=== PATIENT | female | born 1985 | race Caucasian/White ===

== ENCOUNTER 2024-01-12 22:12 | Emergency (ER) | payer SELFPAY ==
[~2024-01-12] VITALS: Ht 152.4 cm; Wt 56.7 kg
[2024-01-12 22:32] VITALS: TEMP 99.2
[2024-01-12] MEDS ORDERED: TYLENOL325 MG PO (22:43)
[2024-01-12] MEDS ORDERED: IBUPROFEN200 MG PO (22:43)
[2024-01-12] MEDS: LIDOCAINE HCL 2% LOCAL 20 ML VIAL INJ STA (23:00)
[2024-01-12] MEDS: ACETAMINOPHEN 325 MG TAB PO ONE (23:01)
[2024-01-12] MEDS: TETANUS/DIPHTHERIA TOX ADULT 0.5 ML SYR IM STA (23:02)
[2024-01-12] MEDS: BACITRACIN ZINC 0.9GM TP ONE (23:02)
[2024-01-13 01:11] VITALS: PULSE 76; RESP 18; O2SAT 99
== END 2024-01-13 01:05 | disposition home or self-care (01) ==
LOC: FSED 22:18
DX: S01.21XA Laceration without foreign body of nose, initial encounter (principal); Y04.0XXA Assault by unarmed brawl or fight, initial encounter; Y92.89 Other specified places as the place of occurrence of the external cause
CPT/HCPCS: 12011; 70450; 70486; 90471; 90714; 99284; J2001

== ENCOUNTER 2024-01-20 14:53 | Emergency (ER) | payer SELFPAY ==
[~2024-01-20] VITALS: Ht 152.4 cm; Wt 56.7 kg
[~2024-01-20 14:53] MED LIST: IBUPROFEN200 MG PO; TYLENOL325 MG PO
[2024-01-20 15:24] VITALS: PULSE 75; RESP 16; TEMP 98.3; O2SAT 100
== END 2024-01-20 15:50 | disposition home or self-care (01) ==
LOC: ER 15:04
DX: Z48.02 Encounter for removal of sutures (principal)
CPT/HCPCS: 99282